=== PATIENT | female | born 1960 | race Caucasian/White ===

== ENCOUNTER 2023-07-08 09:34 | Emergency (ER) | payer SELFPAY ==
--- NOTE | 2023-07-08 09:49 | ED.EYEPROB ---
HPI - Eye Problem General Chief complaint: Eye Problems Stated complaint: EYE REDNESS Source: patient Mode of arrival: ambulatory Limitations: no limitations History of Present Illness HPI Narrative: 62 yo female presented for c/o bilateral eye redness, yellow drainage and pain for 3 days. Endorses itching and irritation, and eyes have been crusted shut in the mornings. She has been caring for her grandchildren, one of whom has eye drainage. Uses daily wear contacts, has not been wearing them since onset. Denies vision changes, headache, sinus congestion, n/v/d/f/c. chief complaint: eye pain Related Data Allergies Allergy/AdvReac Type Severity Reaction Status Date / Time Sulfa (Sulfonamide Allergy Rash Verified 07/08/23 09:47 Antibiotics) Review of Systems Review of Systems: CONSTITUTIONAL: Denies body aches, fever, chills EYES:Endorses drainage, redness and pain to both eyes; Denies FB sensation, photophobia, visual changes ENT: Denies rhinorrhea, congestion, sore throat, or otalgia. CARDIOVASCULAR: Denies chest pain, palpitations RESPIRATORY: Denies cough or dyspnea. GASTROINTESTINAL: Denies abdominal pain, nausea, vomiting, or diarrhea. SKIN: Denies rash, itching, or wounds. MUSCULOSKELETAL: Denies back pain, joint pain, or myalgia. NEUROLOGIC: Denies headache, numbness, tingling, or weakness. All systems reviewed & are unremarkable except as noted in HPI and below PMFSH Past Medical History Medical History (Updated 07/08/23 @ 10:01 by Nathaly Gaspar, OSVALDO) No pertinent past medical history Comments At time of signature, I have reviewed and agree with nursing past medical, surgical, social and family history unless otherwise noted. Please see nursing chart for further information. There is no relevant family history pertinent to the presenting complaint Exam Narrative: GENERAL: Well-appearing HEAD: Normocephalic, atraumatic. EYES: Bilateral conjunctival injection, scant yellow drainage. Minimal eye lid swelling/redness. No stye. PERRLA, EOMI. Lid eversion shows no foreign body. ENT: Mucous membranes pink and moist. No rhinorrhea. TMs normal bilaterally. Throat normal. Uvula midline. CHEST: Clear to auscultation. HEART: Regular rate and rhythm. ABDOMEN: Soft, nontender, nondistended SKIN: Warm, dry, no rash. Normal skin turgor. NEURO: No focal deficits. Alert and oriented x3 PSYCH: Normal affect. Course Course Emergency Course: Patient is aware of diagnosis, understands and agrees to treatment plan. Anticipatory guidance given. Patient agrees to follow-up as directed and is aware of reasons to seek care at the emergency department. Portions of this record may have been created with voice recognition software Level of Care: Express Care Visit Vital Signs Vital signs: Vital Signs Temperature 97.3 F L 07/08/23 09:50 Pulse Rate 80 07/08/23 09:50 Respiratory Rate 16 07/08/23 09:50 Blood Pressure 114/80 07/08/23 09:50 Pulse Oximetry 100 07/08/23 09:50 Temperature 97.3 F L 07/08/23 09:50 Pulse Rate 80 07/08/23 09:50 Respiratory Rate 16 07/08/23 09:50 Blood Pressure 114/80 07/08/23 09:50 Pulse Oximetry 100 07/08/23 09:50 MDM - Eye Problem MDM Narrative Medical decision making narrative: Discussed physical exam findings consistent with conjunctivitis. Advised supportive measures and signs/symptoms to go to the ER. Pt is appropriate for outpt treatment and f/u. Differential Diagnosis Differential diagnosis: Likely corneal abrasion, conjunctivitis, acute iritis and other Discharge Plan Discharge Clinical Impression: Bacterial conjunctivitis Patient Disposition: Home, Self-Care Condition: Stable Instructions: Antibiotic Form, Conjunctivitis (ED) Additional Instructions: Avoid touching or rubbing your eye. Use over the counter lubricating eye drops as needed for irritation Use a warm or cool washcloth on your eye for
[2023-07-08 09:50] VITALS: BP 114/80; PULSE 80; RESP 16; TEMP 36.3; O2SAT 100
== END 2023-07-08 10:12 | disposition home or self-care (01) ==
PROVIDERS: Emergency Provider Nurse Practitioner Family
DX: H10.9 Unspecified conjunctivitis (principal)
CPT/HCPCS: 99213; G0463